=== PATIENT | male | born 1970 | race Caucasian/White ===

== ENCOUNTER 2023-01-24 11:31 | Emergency (ER) | payer OTHER, SELFPAY ==
[2023-01-24] VITALS (10 sets, daily range): BP systolic 123–163; BP diastolic 82–98; PULSE 59–82; RESP 16–18; TEMP 36.1; O2SAT 94–96; BMI 26.5
--- NOTE | 2023-01-24 11:44 | DI.RAD.S_ITS ---
PROCEDURE: XR TIBIA FUBULA RT 2V INDICATIONS: fall thru boat [employer] TECHNIQUE: 2 views of the tibia and fibula were acquired. COMPARISON: None. FINDINGS: Bones: No acute appearing fractures or dislocations. There is a remote, healed fracture of the right fibular neck. No suspicious bony lesions. Soft tissues: Apparent soft tissue gas can be seen proximally and medially. No radiopaque foreign bodies are seen. IMPRESSION: Apparent soft tissue gas seen proximally and medially. No radiopaque foreign bodies are seen. No marco acute bony abnormality is seen. Remote proximal fibular fracture. Dictated by: Oniel Duran M.D. on 01/24/2023 at 11:36 Approved by: Oniel Duran M.D. on 01/24/2023 at 11:37
[2023-01-24] MEDS: HYDROMORPHONE 0.5 MG INJ IV (11:56)
[2023-01-24] MEDS: ONDANSETRON 4 MG/2 ML INJ IV (11:57)
[2023-01-24] MEDS: KETOROLAC 30 MG/ML VIAL 15 MG IV (12:27)
[2023-01-24] MEDS: BACITRACIN OINT 0.9 GM PCKT 1 APPLIC TOP (12:27)
--- NOTE | 2023-01-24 14:48 | ED_ITS ---
HPI - Extremity Injury (Lower) <ASHISH Burerll - Last Filed: 01/24/23 14:57> General Chief Complaint: Extremity Injury, Lower Stated Complaint: fell on boat, injured rt leg and rt arm Time Seen by Provider: 01/24/23 12:08 Mode of arrival: Family Vehicle History of Present Illness HPI Narrative: This is a 52-year-old gentleman who presents to the emergency department after he fell into the foreboat while working under the [employer]. States that his left leg shear it against a metal post and this is primarily the most painful area along his medial knee and left calf. He has an abrasion, hematoma, states it is painful to bear weight but does not have bony tenderness. States he is able to flex and extend his knee without difficulty. Denies hitting his head, denies weakness, lightheadedness, other injury. States that his tetanus is up-to-date Related Data Previous Rx's Medication Instructions Recorded ibuprofen 600 mg tablet 600 mg PO Q8H PRN fever or pain 01/24/23 #30 tabs mupirocin 2 % topical ointment 1 applic topical DAILY #22 grams 01/24/23 Allergies Allergy/AdvReac Type Severity Reaction Status Date / Time tramadol AdvReac Nausea Verified 01/24/23 11:42 Review of Systems <ASHISH Burrell - Last Filed: 01/24/23 14:57> Review of Systems ROS Unobtainable: All systems reviewed & are unremarkable except as noted in HPI and below Patient History <ASHISH Burrell - Last Filed: 01/24/23 14:57> Social History Smoking Status: Never smoker Smoking Status: Never smoker alcohol intake frequency: 3 or more drinks per day Substance Use Type: does not use Exam <ASHISH Burrell - Last Filed: 01/24/23 14:57> Narrative Exam Narrative: Reviewed vitals signs and nursing notes. General: cooperative, in no acute distress, well groomed HEENT: symmetrical facial expressions, moist mucous membranes, neck is supple CV: regular rate and rhythm, warm extremities Respiratory: Without abnormal breath sounds, normal work of breathing, without tachypnea, hypoxia. GI: abdomen soft, non-tender to palpation in all quadrants, nondistended, without masses, rebound tenderness or CVA tenderness bilaterally. MSK: moves all extremities, neurovascularly intact, no weakness, normal tone Skin: brisk capillary refill, without rash, left lower extremity with 2 hematomas, an abrasion, calf is soft to palpation, no tenderness with axial load from the heel, no tenderness over proximal fibula, patellar tendon is intact, no tenderness over distal quadriceps, patient able to flex and extend his right knee against resistance without difficulty. Neuro: normal speech and cognition, A&O x3, ambulatory with crutches, clear speech Initial Vital Signs Initial Vital Signs: Vital Signs Temperature 97 F L 01/24/23 11:40 Pulse Rate 82 01/24/23 11:40 Respiratory Rate 18 01/24/23 11:40 Blood Pressure 163/98 H 01/24/23 11:40 Pulse Oximetry 96 01/24/23 11:40 Oxygen Delivery Method Room Air 01/24/23 11:40 <Celine Hoffman DO - Last Filed: 01/25/23 08:30> Initial Vital Signs Initial Vital Signs: Vital Signs Temperature 97 F L 01/24/23 11:40 Pulse Rate 82 01/24/23 11:40 Respiratory Rate 18 01/24/23 11:40 Blood Pressure 163/98 H 01/24/23 11:40 Pulse Oximetry 96 01/24/23 11:40 Oxygen Delivery Method Room Air 01/24/23 11:40 Course <ASHISH Burrell - Last Filed: 01/24/23 14:57> Orders Ordered: Discontinued Medications Hydrocodone Bitart/Acetaminophen (Hydrocodone/Acet 5/325 Tablet) 1 tab PO NOW ONE Stop: 01/24/23 12:16 Last Admin: 01/24/23 12:25 Dose: Not Given Documented By: CHARLENE Bacitracin (Bacitracin Oint 0.9 Gm Pckt) 1 applic TOP NOW ONE Stop: 01/24/23 12:16 Last Admin: 01/24/23 12:27 Dose: 1 applic Documented By: JAZZMINE Hydromorphone HCl (Hydromorphone 0.5 Mg Inj) 0.5 mg IV NOW ONE Stop: 01/24/23 11:55 Last Admin: 01/24/23 11:56 Dose: 0.5 mg Documented By: CHARLENE Ketorolac Tromethamine (Ketorolac 30 Mg/Ml Vial) 15 mg IM NOW ONE Stop: 01/24/23 12:16 Last Admin: 01/24/23 12:25 Dose: Not Given Documented By: CHARLENE Ketorolac Tromethamine (Ketorolac 30 Mg/Ml Vial) 15 mg IV NOW ONE Stop: 01/24/23 12:26 Last Admin: 01/24/23 12:27 Dose: 15 mg Documented By: JAZZMINE Ondansetron HCl (Ondansetron 4 Mg/2 Ml Inj) 4 mg IV NOW ONE Stop: 01/24/23 11:54 Last Admin: 01/24/23 11:57 Dose: 4 mg Documented By: CHARLENE Vital Signs Vital signs: Vital Signs - 8 hr 01/24/23 11:40 01/24/23 11:42 01/24/23 11:59 Temperature 97 F L Pulse Rate 82 78 Respiratory Rate 18 Blood Pressure 163/98 H 145/93 H Pulse Oximetry 96 96 Oxygen Delivery Method Room Air 01/24/23 11:59 01/24/23 12:00 01/24/23 12:00 Temperature Pulse Rate 74 73 Respiratory Rate 16 Blood Pressure 129/85 Pulse Oximetry 95 96 Oxygen Delivery Method Room Air 01/24/23 12:15 01/24/23 12:15 01/24/23 12:30 Temperature Pulse Rate 67 Respiratory Rate Blood Pressure 123/82 124/85 Pulse Oximetry 94 Oxygen Delivery Method 01/24/23 12:30 01/24/23 12:45 01/24/23 12:45 Temperature Pulse Rate 62 60 Respiratory Rate Blood Pressure 125/86 Pulse Oximetry 94 96 Oxygen Delivery Method 01/24/23 13:00 01/24/23 13:00 01/24/23 13:15 Temperature Pulse Rate 59 L Respiratory Rate Blood Pressure 134/92 H 130/91 H Pulse Oximetry 95 Oxygen Delivery Method 01/24/23 13:15 01/24/23 13:30 01/24/23 13:30 Temperature Pulse Rate 61 63 Respiratory Rate Blood Pressure 126/87 Pulse Oximetry 95 95 Oxygen Delivery Method <Celine Hoffman DO - Last Filed: 01/25/23 08:30> Orders Ordered: Discontinued Medications Hydrocodone Bitart/Acetaminophen (Hydrocodone/Acet 5/325 Tablet) 1 tab PO NOW ONE Stop: 01/24/23 12:16 Last Admin: 01/24/23 12:25 Dose: Not Given Documented By: CHARLENE Bacitracin (Bacitracin Oint 0.9 Gm Pckt) 1 applic TOP NOW ONE Stop: 01/24/23 12:16 Last Admin: 01/24/23 12:27 Dose: 1 applic Documented By: JAZZMINE Hydromorphone HCl (Hydromorphone 0.5 Mg Inj) 0.5 mg IV NOW ONE Stop: 01/24/23 11:55 Last Admin: 01/24/23 11:56 Dose: 0.5 mg Documented By: CHARLENE Ketorolac Tromethamine (Ketorolac 30 Mg/Ml Vial) 15 mg IM NOW ONE Stop: 01/24/23 12:16 Last Admin: 01/24/23 12:25 Dose: Not Given Documented By: CHARLENE Ketorolac Tromethamine (Ketorolac 30 Mg/Ml Vial) 15 mg IV NOW ONE Stop: 01/24/23 12:26 Last Admin: 01/24/23 12:27 Dose: 15 mg Documented By: JAZZMINE Ondansetron HCl (Ondansetron 4 Mg/2 Ml Inj) 4 mg IV NOW ONE Stop: 01/24/23 11:54 Last Admin: 01/24/23 11:57 Dose: 4 mg Documented By: CHARLENE Vital Signs Vital signs: Vital Signs - 8 hr 01/24/23 11:40 01/24/23 11:42 01/24/23 11:59 Temperature 97 F L Pulse Rate 82 78 Respiratory Rate 18 Blood Pressure 163/98 H 145/93 H Pulse Oximetry 96 96 Oxygen Delivery Method Room Air 01/24/23 11:59 01/24/23 12:00 01/24/23 12:00 Temperature Pulse Rate 74 73 Respiratory Rate 16 Blood Pressure 129/85 Pulse Oximetry 95 96 Oxygen Delivery Method Room Air 01/24/23 12:15 01/24/23 12:15 01/24/23 12:30 Temperature Pulse Rate 67 Respiratory Rate Blood Pressure 123/82 124/85 Pulse Oximetry 94 Oxygen Delivery Method 01/24/23 12:30 01/24/23 12:45 01/24/23 12:45 Temperature Pulse Rate 62 60 Respiratory Rate Blood Pressure 125/86 Pulse Oximetry 94 96 Oxygen Delivery Method 01/24/23 13:00 01/24/23 13:00 01/24/23 13:15 Temperature Pulse Rate 59 L Respiratory Rate Blood Pressure 134/92 H 130/91 H Pulse Oximetry 95 Oxygen Delivery Method 01/24/23 13:15 01/24/23 13:30 01/24/23 13:30 Temperature Pulse Rate 61 63 Respiratory Rate Blood Pressure 126/87 Pulse Oximetry 95 95 Oxygen Delivery Method MDM - Extremity Injury (Lower) <Jennifer Millard [facility] - Last Filed: 01/24/23 14:57> Imaging Data Extremity x-ray #1: Radiologist's Impression: PROCEDURE:? XR TIBIA FUBULA RT 2V ? INDICATIONS:? fall thru boat [employer] ? TECHNIQUE:? 2 views of the tibia and fibula were acquired.? ? COMPARISON:? None. ? FINDINGS:? ? Bones:? No acute appearing fractures or dislocations.? There is a remote, healed fracture of the right fibular neck.? No suspicious bony lesions.? ? Soft tissues:? Apparent soft tissue gas can be seen proximally and medially.? No radiopaque foreign bodies are seen.? IMPRESSION:? Apparent soft tissue gas seen proximally and medially.? ? No radiopaque foreign bodies are seen.? ? No marco acute bony abnormality is seen. ? Remote proximal fibular fracture. ? ? Dictated by: Oniel Duran M.D. on 01/24/2023 at 11:36 ? ? Approved by: Oniel Duran M.D. on 01/24/2023 at 11:37 ? [facility] Narrative Medical decision making narrative: Chief Complaint: Leg pain after a fall Independent historian: Patient Differential diagnoses include but are not limited to: Acute fracture, hematoma, sprain/strain, compartment syndrome I have independently reviewed the patient's vital signs and nursing notes as well as prior records if available. Pertinent Imaging reviewed: Tib-fib right lower extremity shows patient has remote proximal fibular fracture which he does not have any tenderness over today, it reports soft tissue gas seen proximally immediately however patient has 2 hematomas with abrasions over these areas. Patient's lower extremities soft palpation, hematomas are not pulsatile, no surrounding erythema, no bony tenderness with axial load, patient able to bear weight, only soft tissue tenderness. Discussed compartment syndrome and how to look for this. Compression Lisandro bandage was applied and encourage patient to elevate as much as possible, avoid long dependent activity and to return to the emergency department if signs of infection including redness or streaking, fever chills. He was provided crutches for ambulation as his soft tissue was tender during ambulation. He does not have any weakness, sensation change, cap refill is brisk and his lower extremity is neurovascularly intact without sensation or mobility deficit. Social considerations that may affect disposition: none Questions are addressed and there is agreement with the plan and for follow-up. Patient is appropriate for outpatient management. MIPS: This encounter doesn't have any diagnosis' associated with MIPS criteria. Discharge Plan Departure Patient Disposition: Home Clinical Impression: Hematoma Fall Qualifiers: Encounter type: initial encounter Qualified Code(s): W19.XXXA - Unspecified fall, initial encounter Strain of knee and leg, right Qualifiers: Encounter type: initial encounter Qualified Code(s): S86.911A - Strain of unspecified muscle(s) and tendon(s) at lower leg level, right leg, initial encounter Instructions: Contusion, DI for Muscle Strain, DI for Hematoma (Bruise) Activity Restrictions/Additional Instructions: *You have been diagnosed with a fall without acute fracture, remote fracture is noted in your lower extremity. You have you have 2 large hematoma/blood underneath the skin. Please use the topical antibiotic ointment to help prevent infection, you may keep covered with a large bandage and change daily, I would recommend compression using an Lisandro bandage for compression soft to help prevent pulling of this blood in your lower leg. Please use ice, avoid having your legs dependent for long periods of time. It was nice to meet you, please be careful, okay to use crutches until it is okay to start bearing more weight. If you have instability following this injury, please schedule an appointment [facility]. *What to do: *Please continue to take your regular medications as directed. [ ] New medication prescriptions sent to your pharmacy: [ ] [x ] New medication written as a paper prescription [ ] No new medications given *Please follow up with your primary care provider in 2-3 days, call for an appointment. Let them know you were seen in the Emergency Department and that we asked that you be seen for follow-up. We will electronically transmit a record of today's note if your PCP is in our system *If you do not have a primary care provider please contact [phone] to establish care with one of the [facility] primary care providers. *Return to Emergency Department if you should have any new, worsening, or concerning symptoms, such as [fever greater than 101F, chills, worsening pain, persistent vomiting or other bothersome symptoms]. Prescriptions: New mupirocin 2 % ointment 1 applic topical DAILY Qty: 22 0RF ibuprofen 600 mg tablet 600 mg PO Q8H PRN (Reason: fever or pain) Qty: 30 0RF Referrals: [facility] [Provider Group] Stand Alone Forms: Patient Portal/API <Celine Hoffman DO - Last Filed: 01/25/23 08:30> Cosign ED Attending Cosignacioature Attestation: I was immediately available in the department for consultation.
== END 2023-01-24 13:57 | disposition home or self-care (01) ==
PROVIDERS: Emergency Provider Nurse Practitioner Critical Care Medicine
DX: S86.911A Strain of unspecified muscle(s) and tendon(s) at lower leg level, right leg, initial encounter (principal); S80.11XA Contusion of right lower leg, initial encounter; W17.89XA Other fall from one level to another, initial encounter
CPT/HCPCS: 36415; 73590; 96374; 96375; 99284; J1170; J1885; J2405